=== PATIENT | female | born 1985 | race Caucasian/White ===

== ENCOUNTER 2016-08-28 16:59 | Emergency (ER) | payer SELFPAY ==
--- NOTE | 2016-08-28 18:15 | OBHP ---
Datetime: 08/28/2016 17:47 Admit Comment, IP Provider: 31 yo , LM unsure, SHILPA 01/14/17, EGA 20w 1d per patient by sono 05/2016 "very early"; c/o white mucous discharge at 1500 hours. (+) abdominal cramps 1600 hours. Darlyn delma FERNÁNDEZF, VB. Last had sexual intercourse 4 days ago: states was "cleared from being a High Risk pregnan cy, by her clinic {[facility]} in [place] - thought it was OK to have sex. issues: poo r OB history; history of deliveries; history of pre-eclampsia; previous C/S. P [place] 1[place] 27 weeks[place] 5[place] 3[place] [facility] [place] x 2, 2007, 36 weeks, 8lb - hospital stay x 3 we eks, [facility]; and 2009, 36 weeks, 6[place] [facility] [place] pre-[place]. All females. Spon t ab x 7, between 4-6 weeks; no D_C. 2003, medical at "7 months" - chromosomal abnormality. 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 Denies STIs or abnormal Pap PMH: 1) UTI x 2, this . 2) 2009, pre-eclampsia PSH: 2006, cholecystectomy; C/S x 2 NKDA Meds: PNV; Baby aspirin - both, QD; latter started 08/04/16. Soc Hx: denies tobacco, illicit drug or EtOH use. Lives with current FOB; together x 4 years. Unem ployed Fam Hx: Mother alive 62. Father alive 63. Both, no med issues. No known fam h/o cancer P.E.: as above. Obese, in NAD. Awake, alert, oriented to time, person and place Assessment: 31 yo [id number], 20w 1d, poor Ob Hx; h/o delivery and C/S x 2; h/o pre-eclampsia. - presumptive vaginal candidiasis. Tracing appropriate for gestational age. Patient counseled to refr ain from sexual activity until delivery. Patient clinically stable. Plan: 1) Terazol vag cream: 1 suppository pV QHS x 3 days, (refill x 1) 2) Keep appointment 08/30/16 Pelvic Type - PN: Adequate Extremities - PN: Normal Abdomen - PN: Normal Back - PN: Normal Breast - PN: Not Done Lungs - PN: Normal Heart - PN: Normal Thyroid - PN: Not Done Neurologic - PN: Normal HEENT - PN: Normal General - PN: Normal Comments, ACOG Physical Exam: Skin: warm, dry, intact Abdomen: Obese. Soft. Non tender Perienum: dry Spec: moderate amount of thick white discharge; no odor. Nitrazine (-) Bedside sono: MVP 6.36 cm; posterior placenta; (+) movement; (+) cardiac activity All other systems reviewed and as per HPI Gestation - Est Wks by US: 20w1d EGA AdmitDate IP: 20.1 Vital Signs Provider: Reviewed; Within Normal Limits IP Chief Complaint: Maternal discomfort Dilatation, Provider: 0 Effacement, Provider: 20 Station, Provider: N/A Genitourinary Exam: Abnormal DTRs - PN: Not Done
== END 2016-08-28 18:02 | disposition home or self-care (01) ==
LOC: C.EROB 16:59
DX: O26.892 Other specified pregnancy related conditions, second trimester (principal); N89.8 Other specified noninflammatory disorders of vagina; R10.9 Unspecified abdominal pain; Z3A.20 20 weeks gestation of pregnancy